=== PATIENT | female | born 2005 | race Caucasian/White ===

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

== ENCOUNTER 2025-04-26 04:38 | Emergency (ER) | payer BC ==
[~2025-04-26] VITALS: Ht 157.5 cm; Wt 61.2 kg
[2025-04-26 04:54] VITALS: BP 128/83
== END 2025-04-26 05:40 | disposition home or self-care (01) ==
LOC: ER 04:38
DX: I77.2 Rupture of artery (principal); Z59.89 Other problems related to housing and economic circumstances
CPT/HCPCS: 99283